=== PATIENT | female | born 1965 | race African-American/Black ===

== ENCOUNTER 2025-11-09 21:11 | Emergency (ER) | payer OTHER ==
[2025-11-09] MEDS ORDERED: Acetaminophen 325 MG TAB ONE (21:51)
== END 2025-11-09 23:11 | disposition home or self-care (01) ==
LOC: NAV ERS 21:11
DX: S80.12XA Contusion of left lower leg, initial encounter (principal); W20.8XXA Other cause of strike by thrown, projected or falling object, initial encounter; Y99.0 Civilian activity done for income or pay
CPT/HCPCS: 99283